=== PATIENT | male | born 1975 | race African-American/Black ===

== ENCOUNTER 2020-05-02 20:10 | Emergency (ER) | payer SELFPAY ==
[2020-05-02 21:26] LABS: ABSOLUTE BASOPHILS # (AUTO) 0.1 10^3/uL (0.0-0.2); ABSOLUTE EOSINOPHILS # (AUTO) 0.5 10^3/uL (0.0-0.6); ABSOLUTE LYMPHOCYTES (AUTO) 3.3 10^3/uL (0.5-4.7); ABSOLUTE MONOCYTES (AUTO) 0.9 10^3/uL (0.1-1.4); ABSOLUTE NEUT (AUTO) 5.4 10^3/uL (1.7-8.2); BASOPHILS % (AUTO) 1.1 % (0-2); EOSINOPHILS % (AUTO) 4.8 % (0-6); HEMATOCRIT 42.5 % (37.9-51.0); HEMOGLOBIN 14.3 g/dL (13.5-17.0); LYMPHOCYTES % (AUTO) 32.6 % (13-45); MEAN CORPUSCULAR HEMOGLOBIN 30.1 pg (27.0-33.4); MEAN CORPUSCULAR HGB CONC 33.6 g/dL (32.0-36.0); MEAN CORPUSCULAR VOLUME 90 fl (80-97); MONOCYTES % (AUTO) 8.5 % (3-13); PLATELET COUNT 302 10^3/uL (150-450); RED BLOOD COUNT 4.73 10^6/uL (4.35-5.55); RED CELL DISTRIBUTION WIDTH 13.2 % (11.5-14.0); TOTAL CELLS COUNTED % (AUTO) 100 %; WHITE BLOOD COUNT 10.2 10^3/uL (4.0-10.5)
[2020-05-02 21:28] LABS: ALKALINE PHOSPHATASE 72 U/L (38-126); ANION GAP 10 (5-19); ASPARTATE AMINO TRANSFERASE 42 U/L (17-59); BILIRUBIN,DIRECT 0.3 mg/dL (0.0-0.4); BILIRUBIN,TOTAL 0.9 mg/dL (0.2-1.3); BLOOD UREA NITROGEN 8 mg/dL (7-20); CALCIUM 9.5 mg/dL (8.4-10.2); CARBON DIOXIDE 25 mmol/L (22-30); CHLORIDE 102 mmol/L (98-107); CREATINE KINASE 129 U/L (55-170); GLUCOSE 95 mg/dL (75-110); TOTAL PROTEIN 7.4 g/dL (6.3-8.2)
--- NOTE | 2020-05-02 21:32 | RADIOLOGY REPORT (SQ) ---
XR CHEST 1 VIEW HISTORY: Chest pain. COMPARISON: None. FINDINGS: The heart size is within normal limits. There is no pulmonary vascular congestion. No consolidation, pleural effusion, or pneumothorax is seen. No acute bony findings are seen. IMPRESSION: No evidence of acute cardiopulmonary disease.
[2020-05-02 22:11] LABS: CREATINE KINASE MB 0.5 ng/mL (<4.55)
[2020-05-02 22:13] LABS: TROPONIN I 0.061 ng/mL
[2020-05-02] MEDS ORDERED: ASPIRIN 81 MG TABLET, CHEWABLE PO ONE (22:51)
--- NOTE | 2020-05-03 03:39 | ER Document Report ---
ED General - General Chief Complaint: Palpitations Stated Complaint: CHEST PAIN/SVT Notes: 45-year-old male history of hypertension, methamphetamine abuse presents with palpitations and chest pain that started suddenly just prior to activating EMS. Patient was at rest and suddenly felt onset of extremely rapid heartbeat and chest tightness. Patient had SVT with a rate of 225 and this converted to sinus rhythm with EMS with vagal/Valsalva maneuver. Patient in ED feels mild chest soreness but otherwise feels completely well. Endorses using methamphetamine yesterday, denies any cocaine use or other stimulants. Patient has had several episodes of similar symptoms in the previous years but have always stopped spontaneously without needing to call EMS. Patient has not noticed any increase in episodes. Patient denies any cardiac history, exertional chest pain, hyperlipidemia, diabetes, recent med changes, shortness of breath, syncope, trauma, fever, recent illness TRAVEL OUTSIDE OF THE [place] IN LAST 30 DAYS: No - Related Data Allergies/Adverse Reactions: diphenhydramine HCl [From Benadryl] Allergy (Intermediate, Verified 02/24/14 01:32) itching Past Medical History - General Information source: Patient - Social History Smoking Status: Current Every Day Smoker Drug Abuse: Marijuana Family History: Reviewed & Not Pertinent Patient has homicidal ideation: No - Past Medical History Cardiac Medical History: Reports: Hx Hypertension Psychiatric Medical History: Reports: Hx Depression - Immunizations Hx Diphtheria, Pertussis, Tetanus Vaccination: Yes Review of Systems - Review of Systems Notes: REVIEW OF SYSTEMS: CONSTITUTIONAL : Denies fever, chills, or sweats. EENT: Denies recent cold/sinus symptoms, denies throat pain CARDIOVASCULAR: +chest pain, -SARA RESPIRATORY: Denies cough, denies shortness of breath. GASTROINTESTINAL: Denies abdominal pain, nausea/vomiting. GENITOURINARY: Denies difficulty urinating, painful urination. MUSCULOSKELETAL: Denies neck pain, back pain. SKIN: Denies rash or skin lesions. HEMATOLOGIC : Denies easy bruising or bleeding. LYMPHATIC: Denies swollen, enlarged glands. NEUROLOGICAL: Denies headache, denies change in gait. PSYCHIATRIC: Denies anxiety or stress or depression. Physical Exam - Vital signs Vitals: Temp 98.9 F 05/02/20 20:11 - Notes Notes: PHYSICAL EXAMINATION: GENERAL: Well-appearing, well-nourished and in no acute distress. HEAD: Atraumatic, normocephalic. EYES: Pupils equal round and appropriate constriction, sclera anicteric, conjunctiva are normal. ENT: nares patent, moist mucous membranes. NECK: Normal range of motion, supple without lymphadenopathy LUNGS: Breath sounds clear to auscultation bilaterally and equal. No wheezes rales or rhonchi. HEART: Regular rate and rhythm without murmurs ABDOMEN: Soft, nontender, no guarding, no masses, no CVAT EXTREMITIES: Normal range of motion, no pitting or edema. No cyanosis. NEUROLOGICAL: Awake, alert, conversing appropriately, moves all extremities spontaneously. PSYCH: Normal mood, normal affect. SKIN: Warm, Dry, normal turgor, no rashes or lesions noted. Course - Re-evaluation Re-evalutation: 05/03/20 03:50 Patient with SVT, very mild residual pain after conversion without medications. Very likely provoked by methamphetamine abuse, patient only risk factor for ACS hypertension and has not had any ACS symptoms other than chest pain associated with heart rate of >200. No signs at this is secondary to coronary artery disease as an inciting factor is present, patient has not had any other symptoms, patient now feels improved. Very borderline positive troponin is to be expected after extreme exertion of the heart with SVT, no indication for observation stay unless repeat troponin increases. Patient has remained asymptomatic in ED, no signs of ischemia on his EKG, will continue to monitor pending repeat troponin. 05/03/20 04:45 Repeat troponin decreased from initial, patient continues to feel completely well in ED, patient ready for DC with PCP and cardiology follow-up. Patient given extensive return to ED precautions which she demonstrated understanding of. Patient given copies of all results and instructed to bring them when he goes for follow-up. - Vital Signs Vital signs: Temp Pulse Resp BP Pulse Ox 98.7 F 19 136/96 H 97 05/03/20 00:00 05/03/20 03:01 05/03/20 03:01 05/03/20 03:01 - Laboratory Result Diagrams: 05/02/20 20:15 05/02/20 20:15 Laboratory results interpreted by me: 05/02/20 20:15 Sodium 136.7 L - EKG Interpretation by Me Additional EKG results interpreted by me: 09/11/20 03:52 Heart rate 82, sinus rhythm, no significant ST elevations or depressions, no significant T wave abnormalities, QTc 435 Discharge - Discharge Clinical Impression: SVT (supraventricular tachycardia) Disposition: HOME, SELF-CARE Additional Instructions: You have had an abnormal heart rhythm called supraventricular tachycardia or SVT. Your blood tests to see if there was any damage to your heart were also slightly abnormal you need to follow this up. Follow-up with a food and beverage director within 1 week. If you have any worsening symptoms, chest pain, trouble breathing, dizziness, fainting, palpitations, or any other worsening or alarming symptoms return to the emergency department immediately. Also follow-up with your primary doctor within 1 week. Stop using methamphetamine as it is dangerous for your heart. Referrals: NIRAJ SHARMA MD [ACTIVE STAFF] - Follow up in 1 week [facility] [Provider Group] - Follow up in 1 week [facility] [Provider Group] - Follow up as needed
[2020-05-03 05:52] VITALS: BP 150/109
--- NOTE | 2020-05-03 16:45 | EKG REPORT ---
SEVERITY:- BORDERLINE ECG - SINUS RHYTHM PROBABLE LEFT ATRIAL ABNORMALITY : Confirmed by: Anuj Raines MD 03-May-2020 16:45:13
== END 2020-05-03 05:30 | disposition home or self-care (01) ==
LOC: ER 20:10
DX: I47.1 Supraventricular tachycardia (principal); R07.9 Chest pain, unspecified; F17.200 Nicotine dependence, unspecified, uncomplicated; I10 Essential (primary) hypertension
CPT/HCPCS: 36415; 71045; 80053; 82550; 82553; 84484; 85025; 93005; 93010; 99285

== ENCOUNTER 2020-07-06 17:49 | Emergency (ER) | payer SELFPAY ==
--- NOTE | 2020-07-06 18:01 | ER Document Report ---
ED Medical Screen (RME) - General Chief Complaint: Chest Pain > 30 Stated Complaint: LEFT ARM NUMBNESS,CHEST PRESSURE Time Seen by Provider: 07/06/20 17:54 Mode of Arrival: Wheelchair Information source: Patient Notes: 85-year-old patient states the numbness to his left has been present for a couple days. States he thought he had just slept on his arm. He states he is not having any other neurological symptoms but he is having chest pain that started about 45 minutes ago. He has had chest pain in the past and they evaluated him and there was no cardiac problems at that time. He states he is also worried because he is got some of the symptoms for this Covid is going around. He states he is got some shortness of breath congestion and his chest pain. We will get chest pain protocol as well as the Covid flu and strep test. I have greeted and performed a rapid initial assessment of this patient. A comprehensive ED assessment and evaluation of the patient, analysis of test re sults and completion of medical decision making process will be conducted by an additional ED providers. TRAVEL OUTSIDE OF THE [place] IN LAST 30 DAYS: No - Related Data Allergies/Adverse Reactions: diphenhydramine HCl [From Benadryl] Allergy (Intermediate, Verified 02/24/14 01:32) itching Past Medical History - Past Medical History Cardiac Medical History: Reports: Hx Hypertension Psychiatric Medical History: Reports: Hx Depression - Immunizations Hx Diphtheria, Pertussis, Tetanus Vaccination: Yes Physical Exam - Vital signs Vitals: Temp Pulse Resp BP Pulse Ox 99.0 F 81 20 162/103 H 100 07/06/20 18:02 07/06/20 18:02 07/06/20 18:02 07/06/20 18:02 07/06/20 18:02 Course - Vital Signs Vital signs: Temp Pulse Resp BP Pulse Ox 99.0 F 81 20 162/103 H 100 07/06/20 18:02 07/06/20 18:02 07/06/20 18:02 07/06/20 18:02 07/06/20 18:02
--- NOTE | 2020-07-06 19:10 | RADIOLOGY REPORT (SQ) ---
EXAM DESCRIPTION: CHEST SINGLE VIEW IMAGES COMPLETED DATE/TIME: 07/06/2020 7:01 pm REASON FOR STUDY: Chest pain shortness of breath COMPARISON: 04/01/2020 EXAM PARAMETERS: NUMBER OF VIEWS: One view. TECHNIQUE: Single frontal radiographic view of the chest acquired. RADIATION DOSE: NA LIMITATIONS: None. FINDINGS: LUNGS AND PLEURA: No opacities, masses or pneumothorax. No pleural effusion. MEDIASTINUM AND HILAR STRUCTURES: No masses. Contour normal. HEART AND VASCULAR STRUCTURES: Heart normal in size. Normal vasculature. BONES: No acute findings. HARDWARE: None in the chest. OTHER: No other significant finding. IMPRESSION: NO ACUTE RADIOGRAPHIC FINDING IN THE CHEST. TECHNICAL DOCUMENTATION: JOB ID: [id number] 2010 [employer]- All Rights Reserved Reading location - IP/workstation name: [email or web address]
[2020-07-06 20:40] LABS: ABSOLUTE BASOPHILS # (AUTO) 0.1 10^3/uL (0.0-0.2); ABSOLUTE EOSINOPHILS # (AUTO) 0.2 10^3/uL (0.0-0.6); ABSOLUTE LYMPHOCYTES (AUTO) 2.8 10^3/uL (0.5-4.7); ABSOLUTE MONOCYTES (AUTO) 0.8 10^3/uL (0.1-1.4); ABSOLUTE NEUT (AUTO) 5.1 10^3/uL (1.7-8.2); BASOPHILS % (AUTO) 0.9 % (0-2); EOSINOPHILS % (AUTO) 2.3 % (0-6); HEMATOCRIT 41.6 % (37.9-51.0); HEMOGLOBIN 14.1 g/dL (13.5-17.0); LYMPHOCYTES % (AUTO) 30.9 % (13-45); MEAN CORPUSCULAR HGB CONC 33.8 g/dL (32.0-36.0); MEAN CORPUSCULAR VOLUME 89 fl (80-97); MONOCYTES % (AUTO) 9.1 % (3-13); PLATELET COUNT 274 10^3/uL (150-450); RED BLOOD COUNT 4.68 10^6/uL (4.35-5.55); RED CELL DISTRIBUTION WIDTH 13.9 % (11.5-14.0); SEGMENTED NEUTROPHILS % (AUTO) 56.8 % (42-78); TOTAL CELLS COUNTED % (AUTO) 100 %
[2020-07-06 20:59] LABS: ALBUMIN 4.5 g/dL (3.5-5.0); ALKALINE PHOSPHATASE 67 U/L (38-126); ANION GAP 10 (5-19); ASPARTATE AMINO TRANSFERASE 49 U/L (17-59); BILIRUBIN,TOTAL 0.5 mg/dL (0.2-1.3); BLOOD UREA NITROGEN 9 mg/dL (7-20); CARBON DIOXIDE 26 mmol/L (22-30); CHLORIDE 101 mmol/L (98-107); CREATINE KINASE 276 U/L (55-170); GLUCOSE 96 mg/dL (75-110); POTASSIUM 4.4 mmol/L (3.6-5.0); TOTAL PROTEIN 8.2 g/dL (6.3-8.2)
--- NOTE | 2020-07-06 21:05 | ER Document Report ---
ED Medical Screen (RME) - General Chief Complaint: Congestion Stated Complaint: LEFT ARM NUMBNESS,CHEST PRESSURE Time Seen by Provider: 07/06/20 17:54 Mode of Arrival: Ambulatory Information source: Patient Notes: Patient is a 45-year-old male who comes emergency room with multiple complaints. Patient first complaint is that he felt lightheaded and near syncopal earlier this evening. He also got short of breath and he had radiation of discomfort from the left side of his neck down his left arm into his fingers. Patient denies any traumatic events has no past medical history. He does admit to drinking daily at least 3 "40s a day of beer. He does admit to smoking marijuana and states he gets it from the same source is not believing that it could have been spiked with anything. He also states that he has been hearing about the coronavirus and thinking that the symptoms would be similar to that as well so he googled it and feels that he might have that as well even though he denies contact with anyone with known disease. When asked about his blood pressure patient states he thinks he has high blood pressure but he is on no medication for it and has not seen anyone for. Denies any family history of heart conditions diabetes or strokes and he does admit to smoking cigarettes. Patient is currently unemployed. TRAVEL OUTSIDE OF THE [place] IN LAST 30 DAYS: No - HPI Onset: This evening Onset/Duration: Sudden Quality of pain: Achy, Other - Tingly Severity: Moderate Pain Level: 3 Associated Symptoms: Dizzy/lightheaded, Shortness of breath, Weakness Exacerbated by: Denies Relieved by: Denies Similar symptoms previously: No Recently seen / treated by doctor: No - Related Data Smoking: Cigarettes Frequency of alcohol use: Heavy Drug Abuse: Marijuana What do you do for a living?: Unemployed right now Allergies/Adverse Reactions: diphenhydramine HCl [From Benadryl] Allergy (Intermediate, Verified 02/24/14 01:32) itching Past Medical History - General Information source: Patient - Social History Cigarette use (# per day): Yes - Half pack a day Frequency of alcohol use: Heavy Drug Abuse: Marijuana Lives with: Family - Past Medical History Cardiac Medical History: Reports: Hx Hypertension Psychiatric Medical History: Reports: Hx Depression - Immunizations Hx Diphtheria, Pertussis, Tetanus Vaccination: Yes Review of Systems - Review of Systems Constitutional: Weakness EENT: No symptoms reported Cardiovascular: See HPI, Lightheaded Respiratory: Cough, Short of breath Gastrointestinal: No symptoms reported Genitourinary: No symptoms reported Male Genitourinary: No symptoms reported Musculoskeletal: See HPI, Neck pain Skin: No symptoms reported Hematologic/Lymphatic: No symptoms reported Neurological/Psychological: No symptoms reported -: Yes All other systems reviewed and negative Physical Exam - Vital signs Vitals: Temp Pulse Resp BP Pulse Ox 99.0 F 81 20 162/103 H 100 07/06/20 18:02 07/06/20 18:02 07/06/20 18:02 07/06/20 18:02 07/06/20 18:02 Interpretation: Hypertensive - Notes Notes: PHYSICAL EXAMINATION: GENERAL: Well-appearing, well-nourished and in no acute distress. HEAD: Atraumatic, normocephalic. EYES: Pupils equal round and reactive to light, extraocular movements intact, sclera anicteric, conjunctiva are normal. ENT: Nares patent, oropharynx clear without exudates. Moist mucous membranes. NECK: Examination patient's neck and upper back show that patient has some mild tenderness on the left lateral inferior portion of the cervical spine which radiates down into the upper trapezius and down along the scapular border. Palpable tender knot along the scapular border as discussed. Increased discomfort with resistance in a downward motion and abduction. LUNGS: Breath sounds clear to auscultation bilaterally and equal. No wheezes rales or rhonchi. HEART: Regular rate and rhythm without murmurs ABDOMEN: Soft, nontender, nondistended abdomen. No guarding, no rebound. No masses appreciated. Musculoskeletal: Further examination patient's thoracic and lumbar spine areas show no reproducible tenderness. Patient has good DTRs bilateral lower extremities. Vascular exam is normal with 2+ pedal pulses noted. Patient has good strength against resistance in the lower extremities. Patient has good sensation in the lower extremities from the inner ankles to the groin as he does from the outer ankles to the thighs. No sign of saddle paresthesia or foot drop. NEUROLOGICAL: Normal speech, normal gait. Normal sensory, motor exams PSYCH: Normal mood, normal affect. SKIN: Warm, Dry, normal turgor, no rashes or lesions noted. Course - Re-evaluation Re-evalutation: 07/06/20 21:08 Patient does not admit to drinking fairly heavily with 3 "40s" of beer daily and he has drank beer today. Last smoked marijuana yesterday. 07/06/20 22:49 Patient completely improved on his own accord. The discomfort in his neck faded away while he was sitting watching football game. He got increased breathing with no problems and currently he has no complaints. Lab work came back normal. He did have hematuria though and I did discuss with him the possibilities of follow-up with urology for that. At this time I think it is reasonable to let patient return home. I have explained to him and sat there for approximately 20 minutes discussing blood pressure problems and we will start him on lisinopril and he will follow up with a clinic or outpatient. I have also explained to him that when he start blood pressure medication several times people start feeling worse on medication than they did while they were having high blood pressure I explained to him it takes his body and brain at least 10 days to 2 weeks to adjust to lower pressures so not to give up on the medication until after 2- week. And then talk to his primary care doctor if he wants to consider changing the medication - Vital Signs Vital signs: Temp Pulse Resp BP Pulse Ox 99.0 F 81 20 168/115 H 92 07/06/20 18:02 07/06/20 18:02 07/06/20 22:47 07/06/20 22:47 07/06/20 22:47 - Laboratory Result Diagrams: 07/06/20 20:25 07/06/20 20:25 Laboratory results interpreted by me: 07/06/20 07/06/20 20:25 20:25 Sodium 136.6 L Creatine Kinase 276 H Urine Blood MODERATE H - EKG Interpretation by Me EKG shows normal: Sinus rhythm Rate: Normal Rhythm: NSR, Other - Heart rate 78 bpm [place]/QRS: No: Right axis deviation, Left axis deviation Voltage: No: Increased voltage P Waves: No: JEROD, LAE - EKG interpreted by emergency room physician Doctor's Discharge - Discharge Clinical Impression: Person under investigation for COVID-19, Cervical radiculopathy Hypertension Qualifiers: Hypertension type: unspecified Qualified Code(s): I10 - Essential (primary) hypertension Condition: Stable Disposition: HOME, SELF-CARE Instructions: High Blood Pressure ([facility]), Torticollis ([facility]) Additional Instructions: As we discussed we will start you on blood pressure medication and I will give you just 1 pill a day for the first month. Remember we talked about that if you are used to running higher pressures it is going to take 10 days to 2 weeks for the brain to understand lower pressure is better so you will feel worse for the possible 2 weeks until the brain adjust. Try not to quit the medication. Likewise it is important you follow-up with a primary care provider. I am giving you the name of the critical access hospital clinic you can contact them to see if they can accommodate you. You can go to a walk-in clinic they can monitor your blood pressure for you to. Should you have any concerns or problems you ca n return to ER for reevaluation. Also I believe that you are having little spasms in the neck or upper back or a little impinged nerve. Light massage as we discussed would be a good ice or moist heat to the area 3 times a day. And again follow-up with primary care. Prescriptions: Lisinopril [Prinivil 10 mg Tablet] 10 mg PO DAILY #30 tablet Methocarbamol [Robaxin 500 mg Tablet] 500 mg PO TID #21 tablet Forms: Elevated Blood Pressure, Smoking Cessation Education
[2020-07-06 21:11] LABS: APPEARANCE,URINE CLEAR; BILIRUBIN,URINE NEGATIVE (NEGATIVE); COLOR,URINE YELLOW; GLUCOSE, URINE NEGATIVE (NEGATIVE); KETONES,URINE NEGATIVE (NEGATIVE); LEUKOCYTE ESTERASE,URINE NEGATIVE (NEGATIVE); NITRITE,URINE NEGATIVE (NEGATIVE); PROTEIN,URINE NEGATIVE (NEGATIVE); UROBILINOGEN,URINE NEGATIVE mg/dL (<2.0)
[2020-07-06 21:25] LABS: URINE AMPHETAMINES SCREEN NEGATIVE; URINE BARBITURATES SCREEN NEGATIVE; URINE BENZODIAZEPINES SCREEN NEGATIVE; URINE COCAINE SCREEN NEGATIVE; URINE METHADONE SCREEN NEGATIVE; URINE PHENCYCLIDINE SCREEN NEGATIVE
[2020-07-06 21:28] LABS: URINE MARIJUANA (THC) SCREEN UNCONFIRMED POSITIVE
[2020-07-06 22:54] VITALS: BP 168/115
--- NOTE | 2020-07-07 09:03 | EKG REPORT ---
SEVERITY:- NORMAL ECG - SINUS RHYTHM : Confirmed by: Kenisha Demarco 07-Jul-2020 09:02:29
== END 2020-07-06 23:04 | disposition home or self-care (01) ==
LOC: ER 17:49
DX: M54.12 Radiculopathy, cervical region (principal); I10 Essential (primary) hypertension; R09.81 Nasal congestion; R20.0 Anesthesia of skin; R07.9 Chest pain, unspecified; R42 Dizziness and giddiness; R06.02 Shortness of breath; F12.10 Cannabis abuse, uncomplicated; R53.1 Weakness; R05 Cough; F17.210 Nicotine dependence, cigarettes, uncomplicated; Z20.828 Contact with and (suspected) exposure to other viral communicable diseases
CPT/HCPCS: 93005; 99285; 36415; 80307 ×2; 82550; 83735; 85025; 87635; 80053; 81001; 84484; 71045; 93010; C9803

== ENCOUNTER 2020-07-23 18:26 | Emergency (ER) | payer SELFPAY ==
--- NOTE | 2020-07-23 18:58 | ER Document Report ---
ED General - General Chief Complaint: Palpitations Stated Complaint: POSSIBLE ANXIETY Time Seen by Provider: 07/23/20 18:32 TRAVEL OUTSIDE OF THE [place] IN LAST 30 DAYS: No - HPI Notes: Patient is a 45-year-old male who presents to the emergency department for evaluation of palpitations, the feeling of anxiety, and the sensation that his chest muscles were tightening. He states he was sitting, watching television when this started. He states that now things feel improved. He believes it was anxiety. He denies any associated shortness of breath, nausea, diaphoresis, near syncope. He states he has had symptoms like this in the past and was told that it was likely anxiety, but he thought he should be checked. He states he also feels "horrible" when he takes his blood pressure medication. He was only recently started on that. He has not yet filed a primary care provider to follow-up with in regards to this issue. Patient denies any caffeine intake. He continues to drink at least one 40 ounce of beer daily. He states he is thinking about trying to quit smoking and drinking. - Related Data Allergies/Adverse Reactions: diphenhydramine HCl [From Benadryl] Allergy (Intermediate, Verified 02/24/14 01:32) itching Home Medications: Lisinopril Past Medical History - General Information source: Patient - Social History Smoking Status: Current Every Day Smoker Chew tobacco use (# tins/day): No Frequency of alcohol use: Heavy - Daily Drug Abuse: None Family History: Reviewed & Not Pertinent - Past Medical History Cardiac Medical History: Reports: Hx Hypertension Psychiatric Medical History: Reports: Hx Depression - Immunizations Hx Diphtheria, Pertussis, Tetanus Vaccination: Yes Review of Systems - Review of Systems Constitutional: No symptoms reported EENT: No symptoms reported Cardiovascular: See HPI Respiratory: No symptoms reported Gastrointestinal: No symptoms reported Genitourinary: No symptoms reported Musculoskeletal: See HPI Skin: No symptoms reported Neurological/Psychological: See HPI -: Yes All other systems reviewed and negative Physical Exam - Vital signs Vitals: Temp Resp BP Pulse Ox 98.9 F 20 159/96 H 100 07/23/20 18:34 07/23/20 18:34 07/23/20 18:34 07/23/20 18:34 - Notes Notes: Vital signs reviewed, please refer to chart. Head is normocephalic, atraumatic. Pupils equal round, reactive to light. Neck is supple without meningismus. Heart is regular rate and rhythm. Lungs are clear to auscultation bilaterally. Abdomen is soft, nontender, normoactive bowel sounds throughout. Extremities without cyanosis, clubbing. Posterior calves are nontender. Peripheral pulses are equal. Skin is warm and dry. Patient is awake, alert, neurological exam is nonfocal. Course - Re-evaluation Re-evalutation: 07/23/20 18:57 Patient presents emergency department for evaluation. Laboratory investigations were ordered. He is placed on a conveyor monitor, oxygen per nasal cannula. Patient is currently stable, is not having pain, really more palpitations. TSH and regular cardiac labs are ordered. EKG is unremarkable. Patient is stable, we will continue to monitor. 07/23/20 20:40 Patient is remained stable. His symptoms have improved. We talked at length about modification of risk factors, his need to stop drinking, stop smoking. He voiced understanding. He also needs to follow-up with a primary care provider. I strongly encouraged him to continue taking his antihypertensive medications and he voiced understanding. He is to return to the emergency department with worsening or new concerning symptoms of any sort. - Vital Signs Vital signs: Temp Pulse Resp BP Pulse Ox 98.9 F 17 159/96 H 100 07/23/20 18:34 07/23/20 20:00 07/23/20 18:34 07/23/20 20:00 - Laboratory Result Diagrams: 07/23/20 20:00 07/23/20 19:05 Laboratory results interpreted by me: 07/23/20 19:05 Total Protein 8.7 H - Diagnostic Test Radiology reviewed: Reports reviewed Radiology results interpreted by me: 07/23/20 20:41 Chest X-Ray 07/23/20 18:46 IMPRESSION: NO ACUTE RADIOGRAPHIC FINDING IN THE CHEST. - EKG Interpretation by Me Additional EKG results interpreted by me: 07/23/20 18:57 Sinus mechanism with PVC noted. Normal axis and intervals. Nonspecific T wave changes, but no acute ST elevation concerning for infarction. No significant change compared to prior study of 07/06/2020. Discharge - Discharge Clinical Impression: Intermittent palpitations, Anxiety Condition: Stable Disposition: HOME, SELF-CARE Instructions: Palpitations (Irregular or Rapid Heartrate) ([facility]), Anxiety ([facility]) Additional Instructions: Please try to quit smoking, cut down alcohol consumption. Please continue your antihypertensive medications as discussed. Follow-up closely with primary care in the next 1 to 2 weeks. If you develop worsening or new concerning symptoms of any sort, please return immediately to the emergency department for ree valuation. Forms: Smoking Cessation Education
--- NOTE | 2020-07-23 19:25 | RADIOLOGY REPORT (SQ) ---
EXAM DESCRIPTION: CHEST SINGLE VIEW IMAGES COMPLETED DATE/TIME: 07/23/2020 7:13 pm REASON FOR STUDY: palpitations COMPARISON: 07/06/2020 EXAM PARAMETERS: NUMBER OF VIEWS: One view. TECHNIQUE: Single frontal radiographic view of the chest acquired. RADIATION DOSE: NA LIMITATIONS: None. FINDINGS: LUNGS AND PLEURA: No opacities, masses or pneumothorax. No pleural effusion. MEDIASTINUM AND HILAR STRUCTURES: No masses. Contour normal. HEART AND VASCULAR STRUCTURES: Heart normal in size. Normal vasculature. BONES: No acute findings. HARDWARE: None in the chest. OTHER: No other significant finding. IMPRESSION: NO ACUTE RADIOGRAPHIC FINDING IN THE CHEST. TECHNICAL DOCUMENTATION: JOB ID: [id number] 2010 [employer]- All Rights Reserved Reading location - IP/workstation name: [email or web address]
[2020-07-23 19:45] LABS: ALBUMIN 4.7 g/dL (3.5-5.0); ALKALINE PHOSPHATASE 68 U/L (38-126); ANION GAP 8 (5-19); ASPARTATE AMINO TRANSFERASE 50 U/L (17-59); BILIRUBIN,DIRECT 0.2 mg/dL (0.0-0.4); BILIRUBIN,TOTAL 0.9 mg/dL (0.2-1.3); BLOOD UREA NITROGEN 11 mg/dL (7-20); CALCIUM 9.8 mg/dL (8.4-10.2); CARBON DIOXIDE 26 mmol/L (22-30); CHLORIDE 104 mmol/L (98-107); GLUCOSE 87 mg/dL (75-110); POTASSIUM 4.7 mmol/L (3.6-5.0); TOTAL PROTEIN 8.7 g/dL (6.3-8.2)
[2020-07-23 20:22] LABS: ABSOLUTE BASOPHILS # (AUTO) 0.1 10^3/uL (0.0-0.2); ABSOLUTE EOSINOPHILS # (AUTO) 0.4 10^3/uL (0.0-0.6); ABSOLUTE LYMPHOCYTES (AUTO) 2.8 10^3/uL (0.5-4.7); ABSOLUTE MONOCYTES (AUTO) 0.9 10^3/uL (0.1-1.4); ABSOLUTE NEUT (AUTO) 5.9 10^3/uL (1.7-8.2); BASOPHILS % (AUTO) 1.1 % (0-2); EOSINOPHILS % (AUTO) 4.2 % (0-6); HEMOGLOBIN 14.2 g/dL (13.5-17.0); LYMPHOCYTES % (AUTO) 27.6 % (13-45); MEAN CORPUSCULAR HEMOGLOBIN 29.7 pg (27.0-33.4); MEAN CORPUSCULAR HGB CONC 33.8 g/dL (32.0-36.0); MEAN CORPUSCULAR VOLUME 88 fl (80-97); MONOCYTES % (AUTO) 8.7 % (3-13); PLATELET COUNT 280 10^3/uL (150-450); RED BLOOD COUNT 4.79 10^6/uL (4.35-5.55); RED CELL DISTRIBUTION WIDTH 13.6 % (11.5-14.0); SEGMENTED NEUTROPHILS % (AUTO) 58.4 % (42-78); TOTAL CELLS COUNTED % (AUTO) 100 %; WHITE BLOOD COUNT 10.2 10^3/uL (4.0-10.5)
[2020-07-23 21:10] VITALS: BP 165/90
--- NOTE | 2020-07-24 09:09 | EKG REPORT ---
SEVERITY:- ABNORMAL ECG - SINUS RHYTHM ABNORMAL T, CONSIDER ISCHEMIA, INFERIOR LEADS LVH : Confirmed by: Anuj Raines MD 24-Jul-2020 09:08:35
== END 2020-07-23 21:10 | disposition home or self-care (01) ==
LOC: ER 18:26
DX: F41.9 Anxiety disorder, unspecified (principal); R00.2 Palpitations; F17.200 Nicotine dependence, unspecified, uncomplicated; I10 Essential (primary) hypertension; Z88.8 Allergy status to other drugs, medicaments and biological substances
CPT/HCPCS: 36415; 71045; 80053; 84443; 84484; 85025; 93005; 93010; 99285

== ENCOUNTER 2020-08-14 11:28 | Emergency (ER) | payer SELFPAY ==
--- NOTE | 2020-08-14 11:32 | ER Document Report ---
ED General - General Stated Complaint: HEART ISSUES Time Seen by Provider: 08/14/20 11:31 Primary Care Provider: [facility] [Provider Group] - Follow up in 3-5 days (call for appointment ) Notes: Patient is a 45-year-old male with history of SVT that presents to the emergency department for chief complaint of palpitations. Patient states that he was sitting down watching TV and noted that he felt like his heart was racing and beating out of his chest, and when this occurred he called EMS. He has had several episodes like this in the past. When EMS arrived they got him on the monitor, and he spontaneously converted to a normal sinus rhythm. He states he is feeling much better at this time. Denies having any chest pain, nausea, vomiting or shortness of breath. Denies any recent fevers, chills, night sweats, cough, abdominal pain or any other symptoms currently. He states he has high blood pressure and ran out of his medication several days ago, was taking lisinopril previously, he was trying to establish with a primary care but has not been able to get in with one yet. Past Medical History: SVT Past Surgical History: Reviewed not pertinent Social History: Admits to smoking cigarettes, drinking alcohol, denies illicit drug use Family History: Reviewed and noncontributory for presenting illness Allergies: Reviewed, see documented allergy list. REVIEW OF SYSTEMS: Other than noted above, the 12 point review of systems was reviewed with the patient and were negative, all pertinent findings are included in the HPI. PHYSICAL EXAMINATION: Vital signs reviewed, nursing noted reviewed. GENERAL: Well-appearing, well-nourished and in no acute distress. HEAD: Atraumatic, normocephalic. EYES: Eyes appear normal, sclera anicteric, conjunctiva are normal. ENT: Moist mucous membranes. NECK: Normal range of motion, supple without lymphadenopathy LUNGS: Breath sounds clear to auscultation bilaterally and equal. No wheezes rales or rhonchi. HEART: Regular rate and rhythm without murmurs EXTREMITIES: Nontender, good range of motion, no pitting or edema. NEUROLOGICAL: No focal neurological deficits. Moves all extremities spontaneously Motor and sensory grossly intact on exam. PSYCH: Normal mood, normal affect. SKIN: Warm, Dry, normal turgor, no rashes or lesions noted on exposed skin TRAVEL OUTSIDE OF THE [place] IN LAST 30 DAYS: No - Related Data Allergies/Adverse Reactions: diphenhydramine HCl [From Benadryl] Allergy (Intermediate, Verified 02/24/14 01:32) itching Past Medical History - Social History Smoking Status: Current Every Day Smoker Family History: Reviewed & Not Pertinent - Past Medical History Cardiac Medical History: Reports: Hx Hypertension Psychiatric Medical History: Reports: Hx Depression - Immunizations Hx Diphtheria, Pertussis, Tetanus Vaccination: Yes Course - Re-evaluation Re-evalutation: Patient seen examined, vital signs reviewed, exam patient overall appears well, was in normal sinus rhythm on telemetry, patient blood work obtained, demonstrated normal electrolytes, troponin negative, his repeat EKG was unchanged from prior. This point I feel the patient can be discharged home, given prescription for metoprolol 25 mg twice daily, and refilled his lisinopril, given referral to primary care. Patient understood and agreed and was discharged home. - Laboratory Results Result Diagrams: 08/14/20 11:43 08/14/20 11:43 Laboratory Results Interpreted: 08/14/20 11:43 Chloride 109 H Critical Laboratory Results Reviewed: No Critical Results - Radiology Results Critical Radiology Results Reviewed: No Critical Results - EKG Interpretation by Me EKG shows normal: Sinus rhythm Rate: Normal Rhythm: NSR When compared to previous EKG there are: No significant change Discharge - Discharge Clinical Impression: SVT (supraventricular tachycardia) Condition: Stable Disposition: HOME, SELF-CARE Instructions: Paroxysmal Supraventricular Tachycardia ([facility]) Additional Instructions: Please start taking the prescribed metoprolol, twice daily, but please follow-up with your primary care physician so that this can be continued if deemed appropriate. And continue taking your previously prescribed lisinopril. Prescriptions: Metoprolol Tartrate [Lopressor 25 mg Tablet] 25 mg PO Q12 #60 tab Lisinopril [Prinivil 10 mg Tablet] 10 mg PO DAILY #30 tablet Referrals: [facility] [Provider Group] - Follow up in 3-5 days (call for appointment )
[2020-08-14] MEDS ORDERED: METOPROLOL TARTRATE 25 MG TABLET PO ONE (11:39)
[2020-08-14 12:09] LABS: ABSOLUTE EOSINOPHILS # (AUTO) 0.2 10^3/uL (0.0-0.6); ABSOLUTE LYMPHOCYTES (AUTO) 2.6 10^3/uL (0.5-4.7); ABSOLUTE MONOCYTES (AUTO) 0.6 10^3/uL (0.1-1.4); ABSOLUTE NEUT (AUTO) 3.6 10^3/uL (1.7-8.2); BASOPHILS % (AUTO) 0.7 % (0-2); EOSINOPHILS % (AUTO) 2.2 % (0-6); HEMOGLOBIN 14.2 g/dL (13.5-17.0); LYMPHOCYTES % (AUTO) 37.3 % (13-45); MEAN CORPUSCULAR HGB CONC 32.9 g/dL (32.0-36.0); MEAN CORPUSCULAR VOLUME 88 fl (80-97); MONOCYTES % (AUTO) 8.6 % (3-13); PLATELET COUNT 273 10^3/uL (150-450); RED BLOOD COUNT 4.87 10^6/uL (4.35-5.55); RED CELL DISTRIBUTION WIDTH 13.8 % (11.5-14.0); SEGMENTED NEUTROPHILS % (AUTO) 51.2 % (42-78); TOTAL CELLS COUNTED % (AUTO) 100 %
[2020-08-14 12:13] LABS: ANION GAP 7 (5-19); BLOOD UREA NITROGEN 10 mg/dL (7-20); CALCIUM 8.8 mg/dL (8.4-10.2); CARBON DIOXIDE 22 mmol/L (22-30); CHLORIDE 109 mmol/L (98-107); GLUCOSE 88 mg/dL (75-110); POTASSIUM 4.1 mmol/L (3.6-5.0)
[2020-08-14 13:11] VITALS: BP 169/126
--- NOTE | 2020-08-14 13:29 | RADIOLOGY REPORT (SQ) ---
EXAM DESCRIPTION: CHEST SINGLE VIEW IMAGES COMPLETED DATE/TIME: 08/14/2020 11:23 am REASON FOR STUDY: svt. COMPARISON: 07/23/2020 EXAM PARAMETERS: NUMBER OF VIEWS: One view. TECHNIQUE: Single frontal radiographic view of the chest acquired. RADIATION DOSE: NA LIMITATIONS: None. FINDINGS: LUNGS AND PLEURA: No opacities, masses or pneumothorax. No pleural effusion. MEDIASTINUM AND HILAR STRUCTURES: No masses. Contour normal. HEART AND VASCULAR STRUCTURES: Heart normal in size. Normal vasculature. BONES: No acute findings. HARDWARE: None in the chest. OTHER: No other significant finding. IMPRESSION: NO ACUTE RADIOGRAPHIC FINDING IN THE CHEST. TECHNICAL DOCUMENTATION: JOB ID: [id number] 2010 [employer]- All Rights Reserved Reading location - IP/workstation name: [email or web address]
--- NOTE | 2020-08-14 15:19 | EKG REPORT ---
SEVERITY:- NORMAL ECG - SINUS RHYTHM NONSPECIFIC T INVERSION INFERIOR LEADS. : Confirmed by: Reynaldo Gustafson MD 14-Aug-2020 15:18:55
== END 2020-08-14 13:11 | disposition home or self-care (01) ==
LOC: ER 11:28
DX: I47.1 Supraventricular tachycardia (principal); I10 Essential (primary) hypertension; F17.210 Nicotine dependence, cigarettes, uncomplicated; Z88.8 Allergy status to other drugs, medicaments and biological substances
CPT/HCPCS: 36415; 71045; 80048; 83735; 84484; 85025; 93005; 93010; 99285